=== PATIENT | female | born 1955 ===

== ENCOUNTER 2016-11-11 08:03 | Day surgery (SDC) | payer OTHER ==
[2016-11-05 11:25] VITALS: BMI 28.7
[~2016-11-11 08:03] MED LIST: Bupivacaine HCl 0.5% PF (10 ml) Inj ONE; HEPARIN-NS 5,000 UNITS/500 ML 500 ML IV ONE; Lidocaine 2% Inj (20ml) ONE
[2016-11-11] MEDS ORDERED: HEPARIN-NS 5,000 UNITS/500 ML 500 ML IV ONE (09:17)
[2016-11-11] MEDS ORDERED: ceFAZolin 1 gm FROZEN Premix 50 ML IVPB ONE (09:17)
[2016-11-11] MEDS ORDERED: Lactated Ringer's 1,000 ML IV ONE ×2 (09:22)
[2016-11-11] MEDS ORDERED: Midazolam 2 MG/2 ML VIAL ONE (09:43)
[2016-11-11] MEDS ORDERED: Oxycodone/Acetaminophen 5/325 mg Tab PO PRN (11:05)
--- NOTE | 2016-11-11 11:05 | PCM.SURG1 ---
Surgeon's Initial Post Op Note - Surgeon's Notes Surgeon: Dr. Villagomez [employer] Underwriter: Dr. Laguerre PGY-2 Type of Anesthesia: General Mask Pre-Operative Diagnosis: Malpositioned portacath Operative Findings: catheter position confirmed by fluoro to be in SVC Post-Operative Diagnosis: Malpositioned portacath Operation Performed: Removal and insertion of new portacath chamber, repositioning of catheter Specimen/Specimens Removed: portacath Estimated Blood Loss: EBL {In ML}: 60 Blood Products Given: N/A Drains Used: No Drains Post-Op Condition: Good Date of Surgery/Procedure: 11/11/16 Time of Surgery/Procedure: 09:00
--- NOTE | 2016-11-11 11:34 | RAD ---
HISTORY: s/p Portacath repositioning COMPARISON: 02/05/2016 FINDINGS: LUNGS: Left chest wall port in stable position. Mild venous congestion. PLEURA: No significant pleural effusion identified, no pneumothorax apparent. CARDIOVASCULAR: Normal. OSSEOUS STRUCTURES: No significant abnormalities. VISUALIZED UPPER ABDOMEN: Normal. OTHER FINDINGS: None. IMPRESSION: Left chest wall port in stable position. Mild venous congestion.
--- NOTE | 2016-11-11 12:50 | OP ---
PROCEDURE DATE: 11/11/2016 PREOPERATIVE DIAGNOSIS: Malfunctioning venous access port. PROCEDURE PERFORMED: Repositioning of catheter and replacement of the Port-A-Cath chamber. FINDINGS: On x-ray, the tip of the catheter points all the way up to the jugular. This patient is g oing to need some chemotherapy and they suggested it should be replaced or repositioned around the ar ea of the superior vena cava or the innominate. PROCEDURE: Under local anesthesia utilizing lidocaine 2% and IV sedation, the patient was prepared a nd draped in sterile fashion. An incision was made over the old scar, extended down to subcutaneous tissue, down to the capsule of this Port-A-Cath chamber. This chamber was then extruded out of the p ocket, disconnected from the catheter. A guidewire was then introduced into the catheter and attempt at repositioning the tip of the catheter was made. This was very difficult to do so because the cat heter kept going up into the jugular. At this point, the patient became very belligerent and combativ e and the IVC infiltrated; therefore, the procedure was temporarily held until an IV was reinserted. When the IV was then reestablished and the patient was sedated, the procedure continued. The cathet er was then placed and directed towards the superior vena cava. When this was done, it was connected to a new Port-A-Cath chamber; however, the Port-A-Cath chamber could not accommodate the lock becaus e of the different size of the catheter. Therefore, this was connected to a new port without the loc k, but the catheter was secured to the new chamber with 2 ligatures of 2-0 silk. The Port-A-Cath was then replaced back into the original cavity. X-rays were taken to ascertain the position. It was fi ne, it was aspirated and was able to take some blood and was able to infuse some heparinized saline t hrough it without any difficulty. Therefore, the wound was closed utilizing sutures of 3-0 Vicryl fo r the subcutaneous tissue and the skin was closed with a subcuticular suture of 4-0 Vicryl. ESTIMATED BLOOD LOSS: Probably estimates about 60 mL. COMPLICATIONS: No apparent complication. Yinka Villagomez MD cc: [id number] TT: 11/11/2016 12:49:11 rn
[2016-11-11 16:04] VITALS: BP 142/70; PULSE 80; RESP 20; TEMP 98.2; O2SAT 99
--- NOTE | 2016-11-12 13:50 | RAD ---
PROCEDURE: Fluoroscopy dated 11/11/2016 HISTORY: Port-A-Cath malfunction COMPARISON: Comparison made with chest radiograph dated 03/09/2016. TECHNIQUE: Two AP views of the left upper kimani thorax submitted. . FINDINGS: Study demonstrates in situ left subclavian MediPort tip in the SVC. Please refer to operative report for additional details. Approximately 427.2 seconds of fluoroscopy time utilized. Radiation dose = 26.58 mGy IMPRESSION: In situ left subclavian MediPort with tip in the SVC. Please refer to operative report for additional details.
== END 2016-11-11 14:45 | disposition home or self-care (01) ==
LOC: C.SDS 08:03
PROVIDERS: ATTEND Surgery
DX: T82.524A Displacement of infusion catheter, initial encounter (principal); I10 Essential (primary) hypertension; C90.00 Multiple myeloma not having achieved remission
CPT/HCPCS: 36556; 71010; 77001; 88300; C1788; J0690; J1644; J2250; J2405; J3010; J7040; J7120

== ENCOUNTER 2017-01-17 08:17 | Day surgery (SDC) | payer OTHER ==
[2016-11-05 11:23] VITALS: BMI 28.7
[2017-01-17] MEDS ORDERED: Heparin 0 ML IV ONE (09:43)
--- NOTE | 2017-01-17 09:53 | CP.SDSHP ---
Same Day Surgery H & P - History Proposed Procedure: Portagram, SVC gram Pre-Op Diagnosis: Myeloma and non functional port - Allergies Allergies: Allergies No Known Allergies Allergy (Verified 02/04/16 09:46) - Physical Exam Mental Status: Alert & Oriented x3 Neuro: WNL Heart: WNL - Impression Impression: Pt with multiple myeloma referred for port evaluation. Pt. Evaluated Today:Candidate for Anesthesia & Procedure: No - Date & Time Date: 01/17/17 Time: 09:40 Short Stay Discharge - Short Stay Discharge Admitting Diagnosis/Reason for Visit: NIKA CATH WITHOUT BLOOD FLOW Disposition: HOME/ ROUTINE
--- NOTE | 2017-01-17 09:55 | PCM.SURG1 ---
Surgeon's Initial Post Op Note - Surgeon's Notes Surgeon: Red Yoon MD Floor Specialist: NONE Pre-Operative Diagnosis: NOn functional port Operative Findings: Left subclavian port. Tip in SVC. Fibrin sheet present. Tip of picc near the azygous. Port is intact. Can inject contrast within the port. No blood return. Post-Operative Diagnosis: NOn functional port Operation Performed: Port evaluation with contrast. SVC gram. Specimen/Specimens Removed: none Estimated Blood Loss: EBL {In ML}: 0 Blood Products Given: N/A Drains Used: No Drains Post-Op Condition: Fair Date of Surgery/Procedure: 01/17/17 Time of Surgery/Procedure: 09:52
[2017-01-17 10:45] VITALS: BP 150/79; PULSE 75; RESP 16; TEMP 97; O2SAT 98
--- NOTE | 2017-01-18 11:02 | SPECPROC ---
PROCEDURE: Date of procedure: 01/17/2017 Procedure: 1. Portogram 2. Superior venacavagram Medications: none Contrast: 15 cc HISTORY: Myeloma, nonfunctional left subclavian poor TECHNIQUE: Following informed consent the procedure time-out, the patient was placed supine on the interventional table and the patient's left neck and chest were prepped and draped in the usual sterile fashion. Fluoroscopic image showed a left subclavian port. The port was accessed with a Parker needle. Contrast injection the port which silhouette catheter which Is intact. An SVC gram was then performed which showed fibrin sheath along the tip of the catheter. The catheter tip is believed to be near the azygos vein which is impart limiting aspiration. The catheter was flushed and locked with heparin. IMPRESSION: Left subclavian port catheter is intact. The Port flushes easily. Unable to aspirate secondary to fibrin sheath at the end of the catheter and also catheter tip abutting wall of SVC near the azygos vein. Recommend port revision.
== END 2017-01-17 10:40 | disposition home or self-care (01) ==
LOC: C.SPRAD 08:17
PROVIDERS: ATTEND Radiology Vascular & Interventional Radiology
DX: Z45.2 Encounter for adjustment and management of vascular access device (principal); C90.00 Multiple myeloma not having achieved remission
CPT/HCPCS: 75827; 96523; J1644

== ENCOUNTER 2017-02-11 09:53 | Day surgery (SDC) | payer OTHER ==
[2017-02-09 09:58] VITALS: BMI 27.6
[2017-02-11 11:11] VITALS: BP 154/82; RESP 20
--- NOTE | 2017-02-11 13:09 | CP.SDSHP ---
Same Day Surgery H & P - History Proposed Procedure: Port explant, Port implant Pre-Op Diagnosis: Multiple Myeloma - Allergies Allergies: Allergies No Known Allergies Allergy (Verified 02/04/16 09:46) - Physical Exam Vital Signs: Vital Signs 02/11/17 10:25 Temperature 98.1 F Pulse Rate 78 Respiratory 20 Rate Blood Pressure 154/82 H O2 Sat by Pulse 97 Oximetry Mental Status: Alert & Oriented x3 Neuro: WNL Heart: WNL Lungs: WNL - Impression Impression: Pt with multiple myeloma and non functional left port. Plan port exchange for a new port. Informed consent obtained. Pt. Evaluated Today:Candidate for Anesthesia & Procedure: Yes (ASA 3 Malampati 3) - Date & Time Date: 02/11/17 Time: 13:00 Short Stay Discharge - Short Stay Discharge Admitting Diagnosis/Reason for Visit: PORT EXCHANGE WITH ANESTHESIA Disposition: HOME/ ROUTINE
[2017-02-11] MEDS ORDERED: ceFAZolin IV 1 gm in Dextrose 1 GM/50 ML BAG IVPB ONE (13:43)
[2017-02-11] MEDS ORDERED: Midazolam 2 MG/2 ML VIAL ONE (13:46)
[2017-02-11] MEDS ORDERED: Propofol 10 mg/ml Inj (20 ML) ONE ×3 (13:49→14:26)
[2017-02-11] MEDS ORDERED: Lidocaine 1% w Epi 1:100,000 Inj ONE (13:54)
[2017-02-11] MEDS ORDERED: Ketamine 50 mg/ml Inj (10 ml) ONE (13:59)
--- NOTE | 2017-02-11 14:45 | PCM.SURG1 ---
Surgeon's Initial Post Op Note - Surgeon's Notes Surgeon: Red Bocanegra MD Roof Bolter: NONE Type of Anesthesia: IV Sedation Pre-Operative Diagnosis: Multiple myeloma Operative Findings: Left subclavian port in place. Patent right IJV. Post-Operative Diagnosis: Multiple myeloma Operation Performed: Port placement right IJV. Port removal left subclavian vein. Specimen/Specimens Removed: Left subclavian port. Estimated Blood Loss: EBL {In ML}: 5 Blood Products Given: N/A Drains Used: No Drains Post-Op Condition: Good Date of Surgery/Procedure: 02/11/17 Time of Surgery/Procedure: 14:40
[2017-02-11 16:03] VITALS: PULSE 67; TEMP 98.3; O2SAT 100
== END 2017-02-11 16:05 | disposition home or self-care (01) ==
LOC: C.SPRAD 09:53
PROVIDERS: ATTEND Radiology Vascular & Interventional Radiology
DX: C90.00 Multiple myeloma not having achieved remission (principal)
CPT/HCPCS: 36561; 77001; 94770; C1751; J0690; J1644; J2250; J2704; J3010

== ENCOUNTER 2017-03-21 07:44 | Day surgery (SDC) | payer OTHER ==
[2017-03-21 08:34] VITALS: BP 119/54; PULSE 74; RESP 19; TEMP 97; O2SAT 97
[2017-03-21 08:35] VITALS: BMI 28.3
== END 2017-03-21 10:00 | disposition home or self-care (01) ==
LOC: C.ENDO 07:44
PROVIDERS: ATTEND Internal Medicine
DX: R13.14 Dysphagia, pharyngoesophageal phase (principal); Q44.4 Choledochal cyst; K58.1 Irritable bowel syndrome with constipation; Z53.9 Procedure and treatment not carried out, unspecified reason

== ENCOUNTER 2017-03-21 10:00 | Observation (INO) | payer OTHER ==
[2017-03-21 10:00] VITALS: BMI 28.3
--- NOTE | 2017-03-21 10:33 | C.PDOC ---
History Of Present Illness 61 year old female with PMH of multiple myeloma, HTN, CAD and asthma sent to ED from endoscopy with complaint of chest tightness and SOB. Patient reports shortness of breath started 3 days ago. She admits having to use 2 pillows to sleep at night or she awakes gasping for air. She states yesterday feeling right sided chest and "lung pain", she took 1NG SL yesterday without relief. She reports feeling more tired and weak than usual and some pains to her arms. Patient was scheduled for endoscopy because she has been having epigastric abdominal pain for months and also reports sensation of food getting stuck in her throat when eating. Denies any fever, cough, leg swelling, numbness, dizziness. Time Seen by Provider: 03/21/17 10:17 Chief Complaint (Nursing): Chest Pain History Per: Patient History/Exam Limitations: no limitations Onset/Duration Of Symptoms: Days (3) Current Symptoms Are (Timing): Still Present Exacerbating Factor(s): Exertion, Laying Flat Current Respiratory Medications: See Home Med List Associated Symptoms: Chest Pain Past Medical History Reviewed: Historical Data, Nursing Documentation, Vital Signs Vital Signs: Last Vital Signs Temp 98.2 F 03/21/17 10:02 Pulse 96 H 03/21/17 10:02 Resp 18 03/21/17 11:00 BP 148/64 03/21/17 10:02 Pulse Ox 96 03/21/17 11:57 - Medical History PMH: Anxiety (OCCASSIONAL), Arthritis (LOWER BACK), Asthma, Bronchitis, CAD ( ANGINA), Cardia Arrhythmia, Gastrointestinal Ulcer, HTN, Hypercholesterolemia, Malignancy (MYELOMA), Sleep Apnea (NO CPAP) Surgical History: Endoscopy - [facility] Procedures ESOPHAGOGASTRODUODENOSCOPY [EGD] W/CLOSED BIOPSY (03/29/14) Family History: States: No Known Family Hx - Social History Hx Tobacco Use: No Hx Alcohol Use: No Hx Substance Use: No - Immunization History Hx Tetanus Toxoid Vaccination: No Hx Influenza Vaccination: No Hx Pneumococcal Vaccination: Yes (2011) Review Of Systems Except As Marked, All Systems Reviewed And Found Negative. Constitutional: Negative for: Fever Cardiovascular: Positive for: Chest Pain (Chest tightness ) Respiratory: Positive for: Shortness of Breath. Negative for: Cough Neurological: Negative for: Numbness, Dizziness Physical Exam - Physical Exam Appears: Non-toxic, No Acute Distress Skin: Warm, Dry, No Rash Head: Atraumatic, Normacephalic Eye(s): bilateral: Normal Inspection, EOMI Nose: Normal Oral Mucosa: Moist Neck: Normal ROM Chest: Symmetrical, No Tenderness, Other ((+) Port right upper chest wall.) Cardiovascular: Rhythm Regular, No Murmur Respiratory: Normal Breath Sounds, No Rales, No Rhonchi, No Wheezing Gastrointestinal/Abdominal: Normal Exam, Soft, No Tenderness, No Guarding, No Rebound Extremity: Normal ROM, No Swelling Neurological/Psych: Oriented x3, Normal Speech, Normal Motor ED Course And Treatment - Laboratory Results Result Diagrams: 03/21/17 10:54 03/21/17 10:54 ECG: Interpreted By Me, Viewed By Me (Dr Bunch) ECG Rhythm: Sinus Rhythm ECG Interpretation: No Changes From Prior (11/05/16) Interpretation Of ECG: NS at 69 bpm with nonspecific Twave abnormality, normal axis, no ST elevation or depression. No acute changes from 11/05/16 Rate From EC (BPM) O2 Sat by Pulse Oximetry: 96 (RA ) Pulse Ox Interpretation: Normal - Other Rad CXR X-Ray: Viewed By Me, Read By Radiologist Interpretation: HISTORY: SOB. COMPARISON: Comparison made with prior chest radiograph 11/26/2016. TECHNIQUE: Chest PA and lateral. FINDINGS: LUNGS: Status post removal left subclavian MediPort and interval placement new right IJ MediPort with tip in the SVC. Suspect minor bibasilar atelectasis. Slight scalloping right hemidiaphragm. PLEURA: No significant pleural effusion identified. No pneumothorax apparent. . There may be some mild biapical pleural thickening. CARDIOVASCULAR: Range of normal. Heart size within range of normal. OSSEOUS STRUCTURES: No significant abnormalities. VISUALIZED UPPER ABDOMEN: Normal. OTHER FINDINGS: None. IMPRESSION: Suspect minor bibasilar atelectasis. Interval removal left-sided MediPort and placement of right-sided MediPort as above. Medical Decision Making Medical Decision Making: Impression: Chest tightness and SOB Prior records reviewed: none available for review Plan: * CXR * EKG * CBC * CMP * BNP * Urinalysis * Aspirin PO Progress: EKG show NS at 69 bpm with nonspecific Twave abnormality, normal axis, no ST elevation or depression. No acute changes from 11/05/16 Labs reviewed negative Troponin, BNP WNL, no other acute findings. Patient re-evaluated and remains unchanged no sharp chest pain but does not feel comfortable [address] Dillard who admits for Dr Castillo and accepted case for obs-tele admission Disposition - Disposition Disposition: HOSPITALIZED Disposition Time: 11:54 Condition: STABLE - Clinical Impression Clinical Impression: Chest pain, Dyspnea, H/O multiple myeloma - PA / INSURANCE ADVISER / Resident Statement MD/DO has reviewed & agrees with the documentation as recorded. - Scribe Statement The provider has reviewed the documentation as recorded by the Scribe Hazel Rojas All medical record entries made by the José Miguelibeliezer were at my direction and personally dictated by me. I have reviewed the chart and agree that the record accurately reflects my personal performance of the history, physical exam, medical decision making, and the department course for this patient. I have also personally directed, reviewed, and agree with the discharge instructions and disposition. Decision To Admit - Pt Status Changed To: Hospital Disposition Of: Observation - . Bed Request Type: Telemetry Admitting Physician: Sherin Dillard Patient Diagnosis: Chest pain, Dyspnea, H/O multiple myeloma
[2017-03-21] MEDS ORDERED: Aspirin 325 mg EC Tablets PO STA (10:37)
[2017-03-21 11:02] LABS: BASO % 0.5 % (0.0-2.0); EOS # 0.2 K/uL (0.0-0.7); EOS % 3.1 % (0.0-4.0); HEMATOCRIT 36.2 % (34.0-47.0); LYMPH % 15.3 % (20.0-40.0); MEAN CELL VOLUME 90.9 fL (81.0-99.0); MEAN CORPUSCULAR HEMOGLOBIN 30.3 pg (27.0-31.0); MEAN CORPUSCULAR HGB CONC 33.3 g/dL (33.0-37.0); MEAN PLATELET VOLUME 7.5 fL (7.2-11.7); MONO # 0.5 K/uL (0.0-0.8); MONO % 7.3 % (0.0-10.0); RED CELL DISTRIBUTION WIDTH 14.1 % (11.5-14.5); WHITE BLOOD COUNT 6.4 K/uL (4.8-10.8)
[2017-03-21 11:11] LABS: CHLORIDE 101 mmol/L (98-107)
--- NOTE | 2017-03-21 11:11 | RAD ---
HISTORY: SOB COMPARISON: Comparison made with prior chest radiograph 11/26/2016 TECHNIQUE: Chest PA and lateral FINDINGS: LUNGS: Status post removal left subclavian MediPort and interval placement new right IJ MediPort with tip in the SVC. Suspect minor bibasilar atelectasis. Slight scalloping right hemidiaphragm. PLEURA: No significant pleural effusion identified. No pneumothorax apparent. . There may be some mild biapical pleural thickening CARDIOVASCULAR: Range of normal. Heart size within range of normal OSSEOUS STRUCTURES: No significant abnormalities. VISUALIZED UPPER ABDOMEN: Normal. OTHER FINDINGS: None. IMPRESSION: Suspect minor bibasilar atelectasis. Interval removal left-sided MediPort and placement of right-sided MediPort as above. .
[2017-03-21 11:12] LABS: POTASSIUM 4.5 mmol/L (3.6-5.2); SODIUM 141 mmol/L (132-148)
[2017-03-21 11:13] LABS: CHOLESTEROL 141 mg/dL (0-199)
[2017-03-21 11:14] LABS: ALB/GLOB RATIO 1.2 (1.0-2.1); ALKALINE PHOSPHATASE 103 U/L (38-126); ALT/SGPT 29 U/L (9-52); AST/SGOT 19 U/L (14-36); BILIRUBIN,TOTAL 0.6 mg/dL (0.2-1.3); BLOOD UREA NITROGEN 17 mg/dL (7-17); CARBON DIOXIDE 26 mmol/L (22-30); GFR AFRICAN-AMERICAN > 60; GLUCOSE,RANDOM 95 mg/dL (65-105)
[2017-03-21 11:15] LABS: CALCIUM 8.9 mg/dl (8.6-10.4)
[2017-03-21 12:05] LABS: RBC URINE 1 /hpf (0-3); URINE BILIRUBIN NEGATIVE (NEGATIVE); URINE BLOOD NEGATIVE (NEGATIVE); URINE COLOR Yellow (YELLOW); URINE GLUCOSE (UA) NORMAL (Normal); URINE KETONE NEGATIVE (NEGATIVE); URINE LEUKOCYTE ESTERASE NEG Leu/uL (Negative); URINE PROTEIN NEGATIVE (NEGATIVE); URINE UROBILINOGEN NORMAL mg/dL (0.2-1.0); WBC URINE < 1 /hpf (0-5)
[2017-03-21] MEDS ORDERED: Albuterol 0.083% Inhal Sol (2.5 mg/3 mL) UD INH PRN (13:45)
--- NOTE | 2017-03-21 13:45 | CP.PCM.HP ---
History of Present Illness - History of Present Illness History of Present Illness: COMPREHENSIVE HISTORY & PHYSICAL EXAM HPI PT WAS IN ENDOSCOPY ROOM FOR EGD . SHE HAD CHEST PAIN, LIGHTNESS A/W SOB . NO RADIATION . THERE IS ? H/O CAD IN ER PRELIMINARY W/U FOR CP IS NEG PAST HIST. MULTIPLE MYELOMA ,HTN PERSONAL HIST: Smoking. N Alcohol. N Allergy N Travel_- . FAMILY HIST : ROS : Constitutional: Negative for weight change, chills, night sweats, fatigue and usage of assist device. Eyes: Negative for redness, swelling, itching, discharge, vision changes, blurry vision, double vision, glaucoma, cataracts, Ears: Negative for hearing loss, ringing, , tinnitus, vertigo Nose: Negative for rhinorrhea, stuffiness, sniffing, itching, postnasal drip, discoloration, nasal congestion and epistaxis. Throat: Negative for throat clearing, sore throat, hoarseness, difficulty swallowing and difficulty speaking. Respiratory: Negative for cough, , sputum production, chest tightness, wheezing, pleuritic chest pain ,daytime somnolence, chronic cough, hemoptysis, snoring at night, Cardiovascular: POS for chest pain, palpitations, orthopnea, PND, NO Edema of legs, leg cramps, angina, claudication, , irregular heartbeat, Neurology: Negative for irritability, muscle weakness, numbness and tingling, seizures, tremors, migraines, slurred speech, syncope, memory loss, mood changes , recurrent headaches Gastrointestinal: Negative for difficulty swallowing, diarrhea, constipation, black stools, rectal bleeding, nausea, flatulence, reflux, poor appetite, changes in bowel habits, abdominal pain Genitourinary: Negative for frequent urination, hematuria, discharge, incontinence, urinary retention, frequent UTI, Psychiatric: Negative for depression, anxiety/panic, suicidal tendencies, Musculoskeletal: Negative for swollen joints, back pain, , neck pain, morning stiffness of joints, . Skin: Negative for rash, ulcers, itching, dry skin and pigmented lesions. P/E: Constitutional: Appears stated age and in no apparent distress. Head: Normocephalic. Ears: External ear canals patent without inflammation. Tympanic membranes intact with normal light reflex and landmark. Eyes: Pupils are central, bilaterally equal, symmetrical and reacts to light with normal movements and no icterus or pallor. Nose: External nares are patent. Mucosa is pink Mouth-Throat: Good general appearance and condition. No post-pharyngeal/oropharyngeal erythema and tonsillar hypertrophy. Good dental hygiene. Neck-Lymphatic: Neck is supple with normal ROM, no thyromegaly, lymph nodes or masses. JVD is normal with no carotid bruit. Lungs: Clear to percussion and auscultation with bilateral normal air entry. Cardiovascular: S1 and S2 are normal with no murmurs, gallops and rub. GI Exam: No hepatomegaly. Abdomen is soft and non-tender. No Organomegaly , masses or hernias are evident and bowel sounds are normal and active. Neurology: Higher function and all cranial nerves intact, with no gross motor or sensory deficit. Superficial and deep reflexes are normal with downwards planters. No cerebellar deficit with normal gait. Musculoskeletal: No tender spots with normal curvature of the spine with no swelling or restricted ROM of the small and large joints. Extremities: Homans sign absent. Intact pulses with no pitting edema, calf tenderness or skin color changes. Skin: No rash, eruptions or abnormal skin pigmentation LAB/RADIOLOGY: ASSESMENT : ACUTE CORONARY SYND MULTIPLE MYELOMA HTN PLAN: SEE ORDERS Present on Admission - Present on Admission Any Indicators Present on Admission: No Past Patient History - Past Medical History & Family History Past Medical History?: Yes - Past Social History Smoking Status: Former Smoker - CARDIAC Hx Cardia Arrhythmia: Yes Hx Hypercholesterolemia: Yes Hx Hypertension: Yes - PULMONARY Hx Asthma: Yes Hx Bronchitis: Yes Hx Sleep Apnea: Yes (NO CPAP) - NEUROLOGICAL Hx Neurological Disorder: No Hx Paralysis: No - HEENT Hx HEENT Problems: Yes Hx Cataracts: Yes (RIGHT CATARACT, LEFT IOL) - RENAL Hx Chronic Kidney Disease: No - ENDOCRINE/METABOLIC Hx Endocrine Disorders: No - HEMATOLOGICAL/ONCOLOGICAL Hx Blood Disorders: No Hx Blood Transfusions: No Hx Blood Transfusion Reaction: No Hx Cancer: Yes (MULTIPLE MYELOMA) Hx Chemotherapy: Yes - INTEGUMENTARY Hx Dermatological Problems: No - MUSCULOSKELETAL/RHEUMATOLOGICAL Hx Arthritis: Yes (LOWER BACK) - GASTROINTESTINAL Hx Gastrointestinal Disorders: Yes Hx Gastroesophageal Reflux: Yes HX Swallowing Problems: Yes - GENITOURINARY/GYNECOLOGICAL Hx Genitourinary Disorders: No - PSYCHIATRIC Hx Anxiety: Yes (OCCASSIONAL) Hx Substance Use: No - SURGICAL HISTORY Hx Surgeries: Yes Hx Cataract Extraction: Yes (RIGHT IOL) Hx Vascular Access Device: Yes (LEFT NIKA CATH) Other/Comment: NIKA CATH INSERTION LEFT SUBCL. (ABOUT 2007) - ANESTHESIA Hx Anesthesia: Yes Hx Anesthesia Reactions: No Hx Malignant Hyperthermia: No Meds Allergies/Adverse Reactions: Allergies Allergy/AdvReac Type Severity Reaction Status Date / Time No Known Allergies Allergy Verified 03/21/17 10:08 Results - Vital Signs Recent Vital Signs: Last Vital Signs Temp 98.2 F 03/21/17 10:02 Pulse 96 H 03/21/17 10:02 Resp 18 03/21/17 11:00 BP 148/64 03/21/17 10:02 Pulse Ox 96 03/21/17 11:57 - Labs Result Diagrams: 03/21/17 10:54 03/21/17 10:54 Labs: Laboratory Results - last 24 hr 03/21/17 11:56 Urine Color Yellow Urine Clarity Clear Urine pH 6.0 Ur Specific [place] 1.012 Urine Protein Negative Urine Glucose (UA) Normal Urine Ketones Negative Urine Blood Negative Urine Nitrate Negative Urine Bilirubin Negative Urine Urobilinogen Normal Ur Leukocyte Esterase Neg Urine WBC (Auto) < 1 Urine RBC (Auto) 1 Ur Squamous Epith Cells 1
[2017-03-21] MEDS ORDERED: oxyCODONE 30 mg Immediate Release Tab ONE (15:05)
[2017-03-21] MEDS: oxyCODONE 30 mg Immediate Release Tab PO PRN ×2 (15:12→23:02)
[2017-03-21] MEDS: diltiaZEM 180 mg/24 Hours CD Cap PO SCH (15:12)
[2017-03-21] MEDS: Ranolazine 500 mg Extended Release Tablets PO SCH (18:13)
[2017-03-22] MEDS: diltiaZEM 180 mg/24 Hours CD Cap PO SCH (09:57)
[2017-03-22] MEDS: Ranolazine 500 mg Extended Release Tablets PO SCH ×2 (09:57→18:14)
[2017-03-22] MEDS: Pantoprazole 40 mg EC Tab PO SCH (09:57)
[2017-03-22] MEDS: oxyCODONE 30 mg Immediate Release Tab PO PRN (10:12)
--- NOTE | 2017-03-22 11:47 | CARD ---
APPROVED REPORT EKG Measurement Heart [id number] <Conclusion> Normal sinus rhythm Nonspecific T wave abnormality Abnormal ECG
--- NOTE | 2017-03-22 12:37 | CARD ---
APPROVED REPORT EXAM: Two-dimensional and M-mode echocardiogram with Doppler and color Doppler. Other Information Quality : GoodRhythm : NSR INDICATION Dyspnea CAD Chest Pain 2D DIMENSIONS IVSd1.0 (0.7-1.1cm)LVDd4.6 (3.9-5.9cm) PWd0.7 (0.7-1.1cm)LVDs3.5 (2.5-4.0cm) FS (%) 24.9 %LVEF (%)55.0 (>50%) M-Mode DIMENSIONS Left Atrium (MM)3.89 (2.5-4.0cm)Aortic Root2.99 (2.2-3.7cm) Aortic Cusp Exc.2.13 (1.5-2.0cm) Mitral Valve MV E Lzpuomdm66.6cm/sMV A Twhpixpe546.7cm/sE/A ratio0.7 TDI E/Lateral E'0.0E/Medial E'0.0 Tricuspid Valve TR Peak Fqmuttms006fp/sTR Peak Gr.[id number] LEFT VENTRICLE The left ventricle is normal size. There is normal left ventricular wall thickness. The left ventricular systolic function is normal. The Ejection Fraction is 55-60%. There is normal LV segmental wall motion. Transmitral Doppler flow pattern is Grade I-abnormal relaxation pattern. RIGHT VENTRICLE The right ventricle is normal size. The right ventricular systolic function is normal. ATRIA The left atrium size is normal. The right atrium size is normal. AORTIC VALVE The aortic valve is normal in structure. No aortic regurgitation is present. MITRAL VALVE The mitral valve is normal in structure. There is no mitral valve regurgitation noted. TRICUSPID VALVE The tricuspid valve is normal in structure. There is trace tricuspid regurgitation. PULMONIC VALVE The pulmonic valve is not well visualized. GREAT VESSELS The aortic root is normal in size. The IVC is normal in size and collapses >50% with inspiration. PERICARDIAL EFFUSION There is no pericardial effusion. A fat pad is noted. <Conclusion> The left ventricular systolic function is normal. The Ejection Fraction is - 55-60%. There is normal LV segmental wall motion. Transmitral Doppler flow pattern is Grade I-abnormal relaxation pattern. The right ventricular systolic function is normal. No valvular abnormality. There is no pericardial effusion. A fat pad is noted.
[2017-03-22 16:12] VITALS: RESP 20
[2017-03-23] MEDS: oxyCODONE 30 mg Immediate Release Tab PO PRN ×2 (00:50→10:05)
[2017-03-23 08:28] VITALS: BP 110/68; TEMP 98.2; O2SAT 100
[2017-03-23] MEDS: diltiaZEM 180 mg/24 Hours CD Cap PO SCH (10:04)
[2017-03-23] MEDS: Ranolazine 500 mg Extended Release Tablets PO SCH (10:04)
[2017-03-23] MEDS: Pantoprazole 40 mg EC Tab PO SCH (10:04)
--- NOTE | 2017-03-23 11:26 | NM ---
VQ scan Technique: 6.2 mCi technetium 99-m Xe-133 Gas. 3.4 mCI technetium 99-m MAA administered intravenously. Comparison: Correlation is made to chest x-ray performed 03/21/17 Findings: Perfusion images do not show a segmental defect. Activity extends expected margin of the lung periphery. Ventilation images do not show any significant areas of ventilation defects. Impression: Low probability for pulmonary embolus.
--- NOTE | 2017-03-23 12:57 | CP.PCM.PN ---
Subjective - Date & Time of Evaluation Date of Evaluation: 03/23/17 Time of Evaluation: 12:57 - Subjective Subjective: SEEN BY ATTENDING AND CLEARED FOR D.C HOME. ALL MEDS AND F/U APPTS DISCUSSED WITH PT. NO FURTHER ORDERS. Objective - Vital Signs/Intake and Output Vital Signs (last 24 hours): Temp Pulse Resp BP Pulse Ox 98.2 F 82 20 110/68 100 03/23/17 08:27 03/23/17 08:27 03/23/17 08:27 03/23/17 08:27 03/23/17 08:27 Intake and Output: 03/23/17 03/23/17 06:59 18:59 Intake Total 240 Balance 240 - Medications Medications: Current Medications Albuterol Sulfate (Albuterol 0.083% Inhal Kalli (2.5 Mg/3 Ml) Ud) 2.5 mg INH BID PRN PRN Reason: Wheezing Alprazolam (Xanax) 0.5 mg PO Q8 PRN PRN Reason: Anxiety Last Admin: 03/22/17 21:26 Dose: 0.5 mg Aspirin (Ecotrin) 81 mg PO DAILY [facility] Last Admin: 03/23/17 10:04 Dose: 81 mg Diltiazem HCl (Cardizem Cd) 180 mg PO DAILY [facility] Last Admin: 03/23/17 10:04 Dose: 180 mg Heparin Sodium (Porcine) (Heparin) 5,000 units SC Q8 [facility] Last Admin: 03/23/17 05:43 Dose: Not Given Oxycodone HCl (Oxycodone Immediate Release Tab) 30 mg PO Q6 PRN PRN Reason: Pain, severe (8-10) Last Admin: 03/23/17 10:05 Dose: 30 mg Pantoprazole Sodium (Protonix Ec Tab) 40 mg PO DAILY [facility] Last Admin: 03/23/17 10:04 Dose: 40 mg Ranolazine (Ranexa) 500 mg PO BID [facility] Last Admin: 03/23/17 10:04 Dose: 500 mg Rosuvastatin Calcium (Crestor) 5 mg PO HS [facility] Last Admin: 03/22/17 21:21 Dose: 5 mg
[2017-03-23 14:47] VITALS: PULSE 76
--- NOTE | 2017-04-14 12:06 | CP.PCM.DIS ---
Provider - Provider Date of Admission: 03/21/17 11:55 Attending physician: Sherin Dillard MD Time Spent in preparation of Discharge (in minutes): 30 Hospital Course - Lab Results Lab Results: Most Recent Lab Values WBC 6.4 K/uL (4.8-10.8) 03/21/17 10:54 RBC 3.98 Mil/uL (3.80-5.20) 03/21/17 10:54 Hgb 12.0 g/dL (11.0-16.0) 03/21/17 10:54 Hct 36.2 % (34.0-47.0) 03/21/17 10:54 MCV 90.9 fL (81.0-99.0) 03/21/17 10:54 MCH 30.3 pg (27.0-31.0) 03/21/17 10:54 MCHC 33.3 g/dL (33.0-37.0) 03/21/17 10:54 RDW 14.1 % (11.5-14.5) 03/21/17 10:54 Plt Count 261 K/uL (130-400) 03/21/17 10:54 MPV 7.5 fL (7.2-11.7) 03/21/17 10:54 Neut % (Auto) 73.8 % (50.0-75.0) 03/21/17 10:54 Lymph % (Auto) 15.3 % (20.0-40.0) L 03/21/17 10:54 [place] % (Auto) 7.3 % (0.0-10.0) 03/21/17 10:54 Eos % (Auto) 3.1 % (0.0-4.0) 03/21/17 10:54 Baso % (Auto) 0.5 % (0.0-2.0) 03/21/17 10:54 Neut # 4.7 K/uL (1.8-7.0) 03/21/17 10:54 Lymph # 1.0 K/uL (1.0-4.3) 03/21/17 10:54 [place] # 0.5 K/uL (0.0-0.8) 03/21/17 10:54 Eos # 0.2 K/uL (0.0-0.7) 03/21/17 10:54 Baso # 0.0 K/uL (0.0-0.2) 03/21/17 10:54 Sodium 141 mmol/L (132-148) 03/21/17 10:54 Potassium 4.5 mmol/L (3.6-5.2) 03/21/17 10:54 Chloride 101 mmol/L (98-107) 03/21/17 10:54 Carbon Dioxide 26 mmol/L (22-30) 03/21/17 10:54 Anion Gap 18 (10-20) 03/21/17 10:54 BUN 17 mg/dL (7-17) 03/21/17 10:54 Creatinine 1.0 MG/DL (0.7-1.2) 03/21/17 10:54 Est GFR ( Amer) > 60 03/21/17 10:54 Est GFR (Non-Af Amer) 56 03/21/17 10:54 Random Glucose 95 mg/dL (65-105) 03/21/17 10:54 Calcium 8.9 mg/dl (8.6-10.4) 03/21/17 10:54 Total Bilirubin 0.6 mg/dL (0.2-1.3) 03/21/17 10:54 AST 19 U/L (14-36) 03/21/17 10:54 ALT 29 U/L (9-52) 03/21/17 10:54 Alkaline Phosphatase 103 U/L (38-126) 03/21/17 10:54 Total Creatine Kinase 60 U/L (30-135) 03/22/17 02:50 CK-MB (Mass) 0.40 ng/mL (0.0-3.38) 03/22/17 02:50 Troponin I, Quant < 0.0120 ng/mL (0.00-0.120) 03/22/17 02:50 NT-Pro-B Natriuret Pep 459 pg/mL (0-900) 03/21/17 10:54 Total Protein 7.0 g/dL (6.3-8.3) 03/21/17 10:54 Albumin 3.8 g/dL (3.5-5.0) 03/21/17 10:54 Globulin 3.3 gm/dL (2.2-3.9) 03/21/17 10:54 Albumin/Globulin Ratio 1.2 (1.0-2.1) 03/21/17 10:54 Triglycerides 110 mg/dL (0-149) 03/21/17 10:54 Cholesterol 141 mg/dL (0-199) 03/21/17 10:54 LDL Cholesterol Direct 64 mg/dL (0-129) 03/21/17 10:54 HDL Cholesterol 59 mg/dL (30-70) 03/21/17 10:54 Urine Color Yellow (YELLOW) 03/21/17 11:56 Urine Clarity Clear (Clear) 03/21/17 11:56 Urine pH 6.0 (5.0-8.0) 03/21/17 11:56 Ur Specific [place] 1.012 (1.003-1.030) 03/21/17 11:56 Urine Protein Negative mg/dL (NEGATIVE) 03/21/17 11:56 Urine Glucose (UA) Normal mg/dL (Normal) 03/21/17 11:56 Urine Ketones Negative mg/dL (NEGATIVE) 03/21/17 11:56 Urine Blood Negative (NEGATIVE) 03/21/17 11:56 Urine Nitrate Negative (NEGATIVE) 03/21/17 11:56 Urine Bilirubin Negative (NEGATIVE) 03/21/17 11:56 Urine Urobilinogen Normal mg/dL (0.2-1.0) 03/21/17 11:56 Ur Leukocyte Esterase Neg Rafaela/uL (Negative) 03/21/17 11:56 Urine WBC (Auto) < 1 /hpf (0-5) 03/21/17 11:56 Urine RBC (Auto) 1 /hpf (0-3) 03/21/17 11:56 Ur Squamous Epith Cells 1 /hpf (0-5) 03/21/17 11:56 - Hospital Course Hospital Course: PT WAS IN ENDOSCOPY ROOM FOR EGD . SHE HAD CHEST PAIN, LIGHTNESS A/W SOB . NO RADIATION . THERE IS ? H/O CAD IN ER PRELIMINARY W/U FOR CP IS NEG PAST HIST. MULTIPLE MYELOMA ,HTN ALL 3 SETS OF TNI WERE NEG ECHO , NO WM ABN , NOR. 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 CARD GIVEN Discharge Plan - Discharge Medications Prescriptions: Fluticasone/Salmeterol [Advair 250-50 Diskus] 1 each IH Q12 #1 blst.w.dev Albuterol 0.083% [Albuterol 0.083% Inhal Kalli (2.5 mg/3 ml) UD] 1 puff INH BID PRN #90 PRN Reason: Wheezing predniSONE [predniSONE Tab] 10 mg PO DAILY #5 tab Azithromycin [Z-S[place]] 250 mg PO DAILY #6 tab - Follow Up Plan Condition: STABLE Disposition: HOME/ ROUTINE Instructions: Albuterol (By breathing), Prednisone (By mouth), Azithromycin ( By mouth), Chest Pain (DC), Heart Healthy Diet (DC) Additional Instructions: FOLLOW UP WITH DR. DILLARD OR YOUR PRIMARY DOCTOR IN THE OFFICE WITHIN 1 WEEK. FOLLOW UP WITH DR. SALDIVAR IN ALREADY SCHEDULED. TAKE ALL OF YOUR MEDICINE AT HOME USUAL. FOR YOUR BREATHING: MAKE SURE YOU TAKE YOUR ADVAIR!! ALSO THE ZITHROMAX ANTIBIOTIC AND PREDNISONE (STEROID, ONCE A DAY FOR 5 DAYS). THESE SHOULD HELP YOU WITH YOUR WHEEZING AND CHEST TIGHTNESS. DISCUSSED, YOU MAY BENEFIT FROM A SLEEP STUDY FOR YOUR BREATHING AT NIGHT TIME. IF YOU HAVE ANY OTHER CONCERNS, CONTACT YOUR DOCTOR. Referrals: Cassandra Saldivar MD [Staff Provider] - Sherin Dillard MD [Staff Provider] -
== END 2017-03-23 14:45 | disposition home or self-care (01) ==
LOC: C.ER 10:00 → C.9E 11:55 → C.6T 21:05
PROVIDERS: ADMIT Internal Medicine Cardiovascular Disease; ATTEND Internal Medicine Cardiovascular Disease
DX: R07.89 Other chest pain (principal); C90.00 Multiple myeloma not having achieved remission; I10 Essential (primary) hypertension; G47.30 Sleep apnea, unspecified; J45.909 Unspecified asthma, uncomplicated; Z87.891 Personal history of nicotine dependence
CPT/HCPCS: 36415; 71020; 78582; 80053; 80061; 81001; 83880; 84484; 85025; 93005; 93306; 96372; 99285; A9524; A9558; G0378; J1642; J1644